=== PATIENT | female | born 1990 | race Caucasian/White ===

== ENCOUNTER 2022-06-15 20:10 | Emergency (ER) | payer OTHER ==
[~2022-06-15] VITALS: Ht 154.9 cm; Wt 97.5 kg
[2022-06-16] MEDS ORDERED: PERCOCET 5-3251 EACH PO (00:27)
== END 2022-06-16 01:17 | disposition home or self-care (01) ==
LOC: ER 20:10
DX: M79.672 Pain in left foot (principal)